=== PATIENT | male | born 1945 | race Hispanic/Latino ===

== ENCOUNTER → 2018-06-11 | Outpatient (CLI) | payer MEDICARE | LOC: CARDIO 06:51 | DX: E11.9 Type 2 diabetes mellitus without complications (principal); R07.89 Other chest pain; I48.91 Unspecified atrial fibrillation ==

== ENCOUNTER 2018-06-17 13:48 | Outpatient (CLI) | payer MEDICARE | END 2018-06-17 13:49 | disposition home or self-care (01) | LOC: HLTHCOUN 13:48 ==

== ENCOUNTER 2018-07-31 09:16 | Day surgery (SDC) | payer MEDICARE ==
[2018-07-22 13:57] VITALS: BMI 32.1
[2018-07-31 10:18] VITALS: RESP 18; TEMP 98.1
[2018-07-31] MEDS ORDERED: Midazolam 2 MG/2 ML VIAL ONE (12:01)
[2018-07-31] MEDS ORDERED: Flumazenil 0.1 mg/ml Inj (5ml) IVP ONE (12:02)
[2018-07-31] MEDS ORDERED: Naloxone 0.4 mg/ml Inj (Adult) ONE (12:02)
[2018-07-31] MEDS ORDERED: Midazolam 2 MG/2 ML VIAL IV ONE ×5 (12:07→12:26)
[2018-07-31] MEDS ORDERED: Sodium Chloride 0.9% 1,000 ML IV SCH (12:45)
[2018-07-31 13:21] VITALS: PULSE 62
[2018-07-31 13:40] VITALS: BP 132/78; O2SAT 95
--- NOTE | 2018-07-31 17:06 | CARD ---
APPROVED REPORT Date of service: 07/31/2018 EXAM: Transesophageal echocardiogram with color flow Doppler and Synchronized Cardioversion. INDICATION Atrial Fibrillation Mitral Valve E/A ratio0.0 TDI E/Lateral E'0.0E/Medial E'0.0 Tricuspid Valve TR Peak [id number] [id number] Peak Gr.38mmHg [id number] Reason For Test : Rule out Intracardiac Thrombus before Cardioversion PROCEDURE After obtaining informed consent, patient underwent transesophageal echo in the Echo Lab. Type of Sedation : Conscious Sedation Sedation was administered by Dr. iraheta. Sedation was achieved with Versed and , Fentanyl 4 mdg and 200 mcg intravenously. Transesophageal probe was inserted and advanced into esophagus without difficulty. Echo enhancement indication: R/O Septal defect. Echo enhancement agent administered: Agitated Saline The AYAN was performed without complications. Synchronized Cardioversion acheived with 200 Joules after first attempt(s). Rhythm following Synchronized Cardioversion: Normal Sinus Rhythm Throughout the procedure, the blood pressure, pulse oximetry, cardiac rhythm, and rate were monitored. The patient tolerated the procedure without adverse effects. Recovery from conscious sedation was uneventful and vital signs were stable. LEFT VENTRICLE The left ventricle is normal size. There is borderline concentric left ventricular hypertrophy. The left ventricular function is normal.A Fib (55%) There is normal LV segmental wall motion. A fib No left ventricle thrombus noted on this study. There is no ventricular septal defect visualized. There is no left ventricular aneurysm. There is no mass noted in the left ventricle. RIGHT VENTRICLE The right ventricle is normal size. There is normal right ventricular wall thickness. The right ventricular systolic function is normal. ATRIA The left atrium is moderately dilated. The right atrium is mildlto moderately dilated. The interatrial septum is intact with no evidence for an atrial septal defect by color flow and bubble study. AORTIC VALVE The aortic valve is normal in structure. There is trace aortic regurgitation. There is no aortic valvular stenosis. There is no aortic valvular vegetation. MITRAL VALVE The mitral valve leaflets are thickened. There is no evidence of mitral valve prolapse. There is no mitral valve stenosis. Mitral regurgitation is mild to moderate., SBP-117/70 TRICUSPID VALVE The tricuspid valve leaflets display thickening. There is mild to moderate tricuspid regurgitation.[id number] mmof hg. There is no tricuspid valve prolapse or vegetation. There is no tricuspid valve stenosis. PULMONIC VALVE The pulmonary valve is normal in structure. There is trace pulmonic valvular regurgitation. There is no pulmonic valvular stenosis. GREAT VESSELS The aortic root is normal in size. The ascending aorta is normal in size. The pulmonary artery is normal. The IVC is normal in size and collapses >50% with inspiration. PERICARDIAL EFFUSION Trivial PE. There is no pleural effusion. <Conclusion> The left ventricle is normal size. There is borderline concentric left ventricular hypertrophy. The left ventricular function is normal.A Fib (55%) There is trace aortic regurgitation. Mitral regurgitation is mild to moderate., SBP-117/70 There is mild to moderate tricuspid regurgitation.[id number]_[id number] mmof hg. There is no pleural effusion. The interatrial septum is intact with no evidence for an atrial septal defect by color flow and bubble study. Biatrial enlargement. velocity in AMEYA more than 0.8 m/s. Moderate plaque in Descending aorta. no clot or thrombus noted in LA/AMEYA/ LV 200 joules Synchronized Cardioversion done , pt converted to NSR. Cc; Drs. Slater / cash.
--- NOTE | 2018-07-31 19:39 | CARD ---
APPROVED REPORT Date of service: 07/31/2018 EKG Measurement Heart [id number] <Conclusion> Normal sinus rhythm Possible Left atrial enlargement NDSTT abnormalities Borderline ECG
--- NOTE | 2018-07-31 19:43 | CARD ---
APPROVED REPORT Date of service: 07/31/2018 EKG Measurement Heart [id number] <Conclusion> Atrial fibrillation with rapid ventricular response Nonspecific ST and T wave abnormalities Abnormal ECG
== END 2018-07-31 15:00 | disposition home or self-care (01) ==
LOC: TEE 09:16
PROVIDERS: ATTEND Internal Medicine Cardiovascular Disease
DX: I48.91 Unspecified atrial fibrillation (principal); I08.1 Rheumatic disorders of both mitral and tricuspid valves; I70.0 Atherosclerosis of aorta
CPT/HCPCS: 92960; 93005; 93312; J2250; J3010; J7030